=== PATIENT | male | born 1980 | race Native Hawaiian/Other Pacific Islander ===

== ENCOUNTER 2017-08-01 20:36 | Emergency (ER) | payer OTHER ==
[2017-08-01] MEDS ORDERED: PEPCID IV ONE ×2 (23:39→23:43)
[2017-08-01] MEDS ORDERED: BENADRYL ONE (23:40)
[2017-08-01] MEDS ORDERED: NACL 0.9% 1000 ML 1,000 ML ONE (23:41)
[2017-08-01] MEDS ORDERED: BENADRYL IV ONE (23:44)
[2017-08-01] MEDS ORDERED: NACL 0.9% 1000 ML 1,000 ML IV ONE (23:44)
[2017-08-02 00:20] LABS: Basophils % (Auto) 0.6 % (0.0-1.8); Eosinophils % (Auto) 6.7 % (0.0-4.3); Hematocrit 41.3 % (35.5-45.6); Hemoglobin 14.1 gm/dl (11.8-15.2); Mean Corpuscular HGB Conc 34 % (32-34); Mean Corpuscular Hemoglobin 30 pg (28-32); Mean Corpuscular Volume 88 fl (84-94); Platelet Count 237 K/mm3 (140-440); Red Blood Count 4.69 M/mm3 (3.65-5.03); Red Cell Distribution Width 13.5 % (13.2-15.2)
[2017-08-02 00:32] LABS: Anion Gap 14 mmol/L; BUN/Creatinine Ratio 16; Blood Urea Nitrogen 11 mg/dL (9-20); Calcium 9.4 mg/dL (8.4-10.2); Carbon Dioxide 30 mmol/L (22-30); Glucose 100 mg/dL (75-100); Potassium 4.2 mmol/L (3.6-5.0); Sodium 140 mmol/L (137-145)
[2017-08-02 01:31] VITALS: BP 125/83
--- NOTE | 2017-08-02 01:31 | Emergency Department Report ---
ED General Adult HPI - General Chief complaint: Allergic Reaction Stated complaint: ALLERGIC REACTION Time Seen by Provider: 08/01/17 23:43 Source: patient Mode of arrival: Ambulatory Limitations: No Limitations - History of Present Illness Initial comments: Patient is a 37-year-old male no significant past medical history who presents with rash and throat itching. Patient states that he was walking inside and he believes he ran into some poison cyndi. Patient is complaining of a rash on his arms and his chest and his throat. He states that symptoms are moderate nothing makes it better or worse. He came to the emergency department because he felt some itchiness and some swelling on his throat. Patient denies having any pain. He states that this is never happened to him before. He denies having any chest pain shortness of breath or any abdominal pain or nausea or vomiting. - Related Data Previous Rx's Medication Instructions Recorded Last Taken Type Famotidine [Pepcid] 20 mg PO QDAY #5 tablet 08/02/17 Unknown Rx diphenhydrAMINE [Benadryl CAP] 25 mg PO Q6HR PRN #20 capsule 08/02/17 Unknown Rx predniSONE [Deltasone] 20 mg PO QDAY #5 tab 08/02/17 Unknown Rx Allergies Allergy/AdvReac Type Severity Reaction Status Date / Time No Known Allergies Allergy Unverified 08/01/17 21:10 ED Review of Systems ROS: Stated complaint: ALLERGIC REACTION Other details as noted in HPI Constitutional: denies: chills, fever Eyes: denies: eye pain, eye discharge, vision change ENT: as per HPI, throat pain. denies: ear pain Respiratory: denies: cough, shortness of breath, wheezing Cardiovascular: denies: chest pain, palpitations Endocrine: no symptoms reported Gastrointestinal: denies: abdominal pain, nausea, diarrhea Genitourinary: denies: urgency, dysuria Musculoskeletal: denies: back pain, joint swelling, arthralgia Skin: rash. denies: lesions Neurological: denies: headache, weakness, paresthesias Psychiatric: denies: anxiety, depression Hematological/Lymphatic: denies: easy bleeding, easy bruising ED Past Medical Hx - Past Medical History Previous Medical History?: No - Surgical History Past Surgical History?: No - Social History Smoking Status: Never Smoker Substance Use Type: None - Medications Home Medications: Home Medications Medication Instructions Recorded Confirmed Last Taken Type Famotidine [Pepcid] 20 mg PO QDAY #5 tablet 08/02/17 Unknown Rx diphenhydrAMINE [Benadryl CAP] 25 mg PO Q6HR PRN #20 capsule 08/02/17 Unknown Rx predniSONE [Deltasone] 20 mg PO QDAY #5 tab 08/02/17 Unknown Rx ED Physical Exam - General Limitations: No Limitations General appearance: alert, in no apparent distress - Head Head exam: Present: atraumatic, normocephalic - Eye Eye exam: Present: normal appearance - ENT ENT exam: Present: mucous membranes moist - Neck Neck exam: Present: normal inspection - Respiratory Respiratory exam: Present: normal lung sounds bilaterally. Absent: respiratory distress - Cardiovascular Cardiovascular Exam: Present: regular rate, normal rhythm. Absent: systolic murmur, diastolic murmur, rubs, gallop - GI/Abdominal GI/Abdominal exam: Present: soft, normal bowel sounds - Rectal Rectal exam: Present: deferred - Extremities Exam Extremities exam: Present: normal inspection - Back Exam Back exam: Present: normal inspection - Neurological Exam Neurological exam: Present: alert, oriented X3 - Psychiatric Psychiatric exam: Present: normal affect, normal mood - Skin Skin exam: Present: other (rash and hives on arms and chest ). Absent: rash ED Course Vital Signs 08/01/17 08/02/17 21:08 01:30 Temperature 98.8 F Pulse Rate 75 71 Respiratory 16 18 Rate Blood Pressure 142/93 Blood Pressure 125/83 [Right] O2 Sat by Pulse 99 100 Oximetry ED Medical Decision Making - Lab Data Result diagrams: 08/01/17 23:47 08/01/17 23:47 Lab Results 08/01/17 08/01/17 Range/Units 23:47 23:47 WBC 8.0 (4.5-11.0) K/mm3 RBC 4.69 (3.65-5.03) M/mm3 Hgb 14.1 (11.8-15.2) gm/dl Hct 41.3 (35.5-45.6) % MCV 88 (84-94) fl MCH 30 (28-32) pg MCHC 34 (32-34) % RDW 13.5 (13.2-15.2) % Plt Count 237 (140-440) K/mm3 Lymph % (Auto) 36.0 H (13.4-35.0) % [place] % (Auto) 13.2 H (0.0-7.3) % Eos % (Auto) 6.7 H (0.0-4.3) % Baso % (Auto) 0.6 (0.0-1.8) % Lymph # 2.9 (1.2-5.4) K/mm3 [place] # 1.1 H (0.0-0.8) K/mm3 Eos # 0.5 H (0.0-0.4) K/mm3 Baso # 0.0 (0.0-0.1) K/mm3 Seg Neutrophils % 43.5 (40.0-70.0) % Seg Neutrophils # 3.5 (1.8-7.7) K/mm3 Sodium 140 (137-145) mmol/L Potassium 4.2 (3.6-5.0) mmol/L Chloride 100.0 (98-107) mmol/L Carbon Dioxide 30 (22-30) mmol/L Anion Gap 14 mmol/L BUN 11 (9-20) mg/dL Creatinine 0.7 L (0.8-1.5) mg/dL Estimated GFR > 60 ml/min BUN/Creatinine Ratio 16 % Glucose 100 (75-100) mg/dL Calcium 9.4 (8.4-10.2) mg/dL - Medical Decision Making Chief medical diagnosis: Allergic reaction Differential Medical diagnosis: Contact dermatitis, metabolic abnormality, angioedema I will give patient IV Benadryl, IV steroids, IV Pepcid and I will also get CBC and CMP he will need observation in the ED for at least a couple hours to remove possibility of life-threatening anaphylaxis. A she most likely has allergic reaction. Patient is feeling better and patient has been observed for multiple hours in the emergency department he is able tolerate by mouth and his rashes and Alzheimer gone down with the IV medication I will give patient a prescription for oral prednisone, Benadryl, Pepcid. Discussed plan with patient gave patient additional verbal discharge instructions and return precautions. Patient agrees with plan Critical care attestation.: If time is entered above; I have spent that time in minutes in the direct care of this critically ill patient, excluding procedure time. ED Disposition Clinical Impression: Hives Allergic reaction Qualifiers: Encounter type: initial encounter Qualified Code(s): T78.40XA - Allergy, unspecified, initial encounter Disposition: DC-01 TO HOME OR SELFCARE Is pt being admited?: No Does the pt Need Aspirin: No Condition: Stable Instructions: Allergies (ED), Anaphylaxis (ED) Prescriptions: diphenhydrAMINE [Benadryl CAP] 25 mg PO Q6HR PRN #20 capsule PRN Reason: Allergy Symptoms Famotidine [Pepcid] 20 mg PO QDAY #5 tablet predniSONE [Deltasone] 20 mg PO QDAY #5 tab Referrals: REMY WISE MD [Staff Physician] - 3-5 Days
== END 2017-08-02 01:57 | disposition home or self-care (01) ==
LOC: ED 20:36
DX: T78.40XA Allergy, unspecified, initial encounter (principal); Y92.9 Unspecified place or not applicable; L50.9 Urticaria, unspecified
CPT/HCPCS: 36415; 80048; 85025; 96361; 96374; 96375; 99283; J1200; J2930; J7030